=== PATIENT | female | born 1955 | race Asian ===

== ENCOUNTER 2024-03-02 15:26 | Inpatient (IN) | payer MEDICARE ==
[~2024-03-02] VITALS: Ht 162.6 cm; Wt 55.5 kg
[2024-03-02] MEDS ORDERED: 0.9% SODIUM CHLORIDE 10 ML SYRINGE IVP PRN (15:45)
[2024-03-02] MEDS: SODIUM CHLORIDE 0.9% 1,500 ML IV ONE (15:52)
[2024-03-02] MEDS: CefTRIAXone 1 GM/DEXTROSE 50 ML IV ONE (15:59)
[2024-03-02 16:06] LABS: BASOPHILS % (AUTO) 0.5 % (0.0-2.0); EOSINOPHILS % (AUTO) 0.5 % (1.0-6.0); HEMOGLOBIN 7.5 g/dL (12.0-16.0); LYMPHOCYTES # (AUTO) 1.3 K/uL (1.0-4.8); LYMPHOCYTES % (AUTO) 7.2 % (22.0-44.0); MEAN CORPUSCULAR HEMOGLOBIN 32.4 pg (26.0-34.0); MEAN CORPUSCULAR HGB CONC 31.2 G/dL (31.0-37.0); MEAN CORPUSCULAR VOLUME 104 fL (80-100); MONOCYTES # (AUTO) 0.9 K/uL (0.1-1.0); NEUTROPHILS # (AUTO) 15.3 K/uL (1.8-7.7); PLATELET COUNT (AUTO) 402 K/uL (150-450); RED BLOOD CELL COUNT(AUTO) 2.31 MIL/uL (4.00-5.20); RED CELL DISTRIBUTION WIDTH 16.7 % (11.5-14.5); WHITE BLOOD COUNT (AUTO) 17.6 K/uL (4.5-11.0)
[2024-03-02 16:07] LABS: NEUTROPHILS % (AUTO) 86.8 % (40.0-70.0)
[2024-03-02 16:07] LABS: APPEARANCE,URINE TURBID (CLEAR); BILIRUBIN,URINE NEGATIVE (NEGATIVE); COLOR,URINE DARK ORANGE (YELLOW); GLUCOSE, URINE (UA) NEGATIVE (NEGATIVE); KETONES,URINE NEGATIVE (NEGATIVE); LEUKOCYTE ESTERASE ,URINE LARGE (NEGATIVE); NITRATE,URINE NEGATIVE (NEGATIVE); OCCULT BLOOD,URINE MODERATE (NEGATIVE); PROTEIN,URINE 300-600,SEE CONFIRM mg/dL (NEGATIVE); SPECIFIC GRAVITIY, URINE 1.024 (1.003-1.030); UROBILINOGEN,URINE <=1.0 mg/dL (<=1.0)
[2024-03-02 16:12] LABS: ANION GAP 7 mmol/L (8-16); CALCIUM, TOTAL 7.9 mg/dL (8.8-10.5); CARBON DIOXIDE 31 mmol/L (22-29); CHLORIDE 93 mmol/L (98-107); CREATININE 5.91 mg/dL (0.60-1.30); GLOMERULAR FILTR. RATE CALC 7 mL/min (>60); GLUCOSE,RANDOM 267 mg/dL (70-110); SODIUM SERUM 131 mmol/L (136-145); UREA NITROGEN, BLOOD 30 mg/dL (7-18)
[2024-03-02 16:14] LABS: INR 1.2 (0.9-1.1); PROTHROMBIN TIME 12.2 SEC (9.4-11.6)
[2024-03-02 16:16] LABS: SULFOSALICYLIC ACID,URINE 4+ (Negative)
[2024-03-02 16:17] LABS: BACTERIA,URINE Many /HPF (None Seen); SQUAMOUS EPITHELIAL CELL,UR Few /LPF (None Seen); WBC,URINE >100 /HPF (0-5)
[2024-03-02 16:20] LABS: LACTIC ACID 1.8 mmol/L (0.4-2.0); TROPONIN I-HIGH SENSITIVITY 29 ng/L (<51)
[2024-03-02 16:21] LABS: B-TYPE NATRIURETIC PEPTIDE 893 pg/mL (0-100); RBC MORPHOLOGY COMMENT NORMAL RBC MORPH
[2024-03-02 16:26] LABS: ALBUMIN 1.6 g/dL (3.4-5.0); ALKALINE PHOSPHATASE 148 U/L (46-116); ASPARTATE AMINOTRANSFERASE 24 U/L (15-37); BILIRUBIN,TOTAL 0.3 mg/dL (0.1-1.0); TOTAL PROTEIN, SERUM 6.1 g/dL (6.4-8.2)
[2024-03-02 16:27] LABS: ALANINE AMINOTRANSFERASE 2 U/L (12-78)
[2024-03-02] MEDS ORDERED: MORPHINE SULFATE 2 MG/ML SYRINGE IVP PRN (19:45)
[2024-03-02] MEDS ORDERED: MAGNESIUM HYDROXIDE SUSPENSION 30 ML UDCUP PO PRN (19:45)
[2024-03-02] MEDS ORDERED: HYDROCODONE/ACETAMINOPHEN 5-325 MG TABLET PO PRN (19:45)
[2024-03-02] MEDS ORDERED: ACETAMINOPHEN 325 MG TABLET PO PRN (19:45)
[2024-03-02] MEDS ORDERED: ONDANSETRON HCL 4 MG/2 ML VIAL IVP PRN (19:45)
[2024-03-02] MEDS ORDERED: BISACODYL 10 MG RECTAL RECTAL SUPPOSITORY PR PRN (19:45)
[2024-03-02] MEDS: *CLINICAL-LEVOFLOXACIN IVPB DOSING CLINICAL ONE (20:02)
[2024-03-02] MEDS: SODIUM CHLORIDE 0.9% 1,000 ML IV ONE (20:07)
[2024-03-02] MEDS: DOCUSATE SODIUM 100 MG CAPSULE PO SCH (20:11)
[2024-03-02 21:40] VITALS: BP 134/71; PULSE 93; RESP 19; TEMP 98.4; O2SAT 94
[2024-03-02 23:57] VITALS: BP 115/70; PULSE 91; RESP 19; TEMP 98.1; O2SAT 96
[2024-03-03] MEDS: HEPARIN SODIUM,PORCINE 5,000 UNITS/ML VIAL SQ SCH (00:21)
[2024-03-03 04:00] VITALS: BP 117/58; PULSE 87; RESP 18; TEMP 98.3; O2SAT 97
[2024-03-03 06:01] LABS: GLUCOMETER DEV NAME(LOC) 5S.1C; GLUCOSE,POINT OF CARE 157 MG/DL (70-110)
[2024-03-03 06:46] LABS: HEMATOCRIT 22.3 % (36-46); HEMOGLOBIN 7.1 g/dL (12.0-16.0); MEAN CORPUSCULAR HGB CONC 31.8 G/dL (31.0-37.0); MEAN CORPUSCULAR VOLUME 104 fL (80-100); PLATELET COUNT (AUTO) 398 K/uL (150-450); RED BLOOD CELL COUNT(AUTO) 2.15 MIL/uL (4.00-5.20); RED CELL DISTRIBUTION WIDTH 16.3 % (11.5-14.5); WHITE BLOOD COUNT (AUTO) 15.8 K/uL (4.5-11.0)
[2024-03-03] MEDS ORDERED: INSU100I26 SQ (06:53)
[2024-03-03] MEDS ORDERED: QUET25TA PO (06:53)
[2024-03-03] MEDS ORDERED: GABA-1181 PO (06:53)
[2024-03-03] MEDS ORDERED: ASPI-1450 PO (06:53)
[2024-03-03] MEDS ORDERED: FERR325T27 PO (06:53)
[2024-03-03] MEDS ORDERED: LEVO75 PO (06:53)
[2024-03-03] MEDS ORDERED: ALLO-97 PO (06:53)
[2024-03-03] MEDS ORDERED: INSNOV SQ (06:53)
[2024-03-03] MEDS ORDERED: DULA0.75 SQ (06:53)
[2024-03-03] MEDS ORDERED: SERT-158 PO (06:53)
[2024-03-03] MEDS ORDERED: SODI650T33 PO (06:53)
[2024-03-03] MEDS ORDERED: ATOR40TA28 PO (06:53)
[2024-03-03] MEDS ORDERED: ERGO500054 PO (06:53)
[2024-03-03] MEDS ORDERED: OXYC-490 PO (06:53)
[2024-03-03] MEDS ORDERED: SEVE800T38 PO (06:53)
[2024-03-03] MEDS ORDERED: CEFU250T87 PO (06:53)
[2024-03-03 07:02] LABS: CALCIUM, TOTAL 7.9 mg/dL (8.8-10.5); CREATININE 6.34 mg/dL (0.60-1.30); POTASSIUM 4.2 mmol/L (3.5-5.1)
[2024-03-03 07:15] LABS: TROPONIN I-HIGH SENSITIVITY 25 ng/L (<51)
[2024-03-03 07:39] LABS: BAND NEUTROPHILS % (MANUAL) 2 % (0-5); LYMPHOCYTES % (MANUAL) 8 % (22-44); MONOCYTES % (MANUAL) 5 % (2-9); RBC MORPHOLOGY COMMENT ABNORMAL RBC MORPH; SEGMENTED NEUTROPHILS % 85 % (40-70); TOTAL CELLS COUNTED 100
[2024-03-03 08:00] VITALS: BP 129/39; PULSE 86; RESP 15; TEMP 98.4; O2SAT 96
[2024-03-03] MEDS: PANTOPRAZOLE SODIUM 40 MG DR TABLET PO SCH (08:41)
[2024-03-03] MEDS ORDERED: DEXTROSE 50%-WATER 25 GM/50 ML SYRINGE IVP PRN (11:15)
[2024-03-03 11:31] LABS: GLUCOMETER DEV NAME(LOC) 5S.1C; GLUCOSE,POINT OF CARE 188 MG/DL (70-110)
[2024-03-03 12:00] VITALS: BP 125/57; PULSE 90; RESP 17; TEMP 98.6; O2SAT 95
[2024-03-03] MEDS: SEVELAMER CARBONATE 800 MG TABLET PO SCH (12:23)
[2024-03-03] MEDS: INSULIN LISPRO 100 UNITS/ML SQ PRN (12:34)
[2024-03-03] MEDS: LEVOFLOXACIN 500 MG/D5% WATER 100 ML IV SCH (14:05)
[2024-03-03 16:00] VITALS: BP 122/70; PULSE 103; RESP 14; TEMP 98.5; O2SAT 95
[2024-03-03 17:36] LABS: GLUCOMETER DEV NAME(LOC) 5S.1C; GLUCOSE,POINT OF CARE 149 MG/DL (70-110)
[2024-03-03 18:11] LABS: GLUCOMETER DEV NAME(LOC) 5N.2C; GLUCOSE,POINT OF CARE 246 MG/DL (70-110)
[2024-03-03] MEDS: HYDROCORTISONE SOD SUCC 100 MG/2 ML VIAL IVP SCH (18:31)
[2024-03-03 20:11] VITALS: BP 129/74; PULSE 102; RESP 17; TEMP 98; O2SAT 99
[2024-03-03] MEDS: ATORVASTATIN CALCIUM 40 MG TABLET PO SCH (21:00)
[2024-03-03 23:29] VITALS: BP 115/62; PULSE 86; RESP 19; TEMP 98.1; O2SAT 97
[2024-03-04] VITALS (12 sets, daily range): BP systolic 99–139; BP diastolic 45–82; PULSE 66–98; RESP 14–18; TEMP 97.2–98.5; O2SAT 95–100
[2024-03-04 00:11] LABS: GLUCOMETER DEV NAME(LOC) 5N.2C; GLUCOSE,POINT OF CARE 194 MG/DL (70-110)
[2024-03-04] MEDS: LEVOTHYROXINE SODIUM 75 MCG TABLET PO SCH (05:40)
[2024-03-04 07:30] LABS: BASOPHILS % (AUTO) 0.4 % (0.0-2.0); EOSINOPHILS % (AUTO) 0 % (1.0-6.0); HEMOGLOBIN 7.7 g/dL (12.0-16.0); LYMPHOCYTES # (AUTO) 0.6 K/uL (1.0-4.8); LYMPHOCYTES % (AUTO) 3.7 % (22.0-44.0); MEAN CORPUSCULAR HGB CONC 31.9 G/dL (31.0-37.0); MEAN CORPUSCULAR VOLUME 103 fL (80-100); MONOCYTES # (AUTO) 0.1 K/uL (0.1-1.0); MONOCYTES % (AUTO) 0.9 % (2.0-9.0); NEUTROPHILS # (AUTO) 14.9 K/uL (1.8-7.7); PLATELET COUNT (AUTO) 431 K/uL (150-450); RED BLOOD CELL COUNT(AUTO) 2.32 MIL/uL (4.00-5.20); WHITE BLOOD COUNT (AUTO) 15.7 K/uL (4.5-11.0)
[2024-03-04 07:38] LABS: RBC MORPHOLOGY COMMENT ABNORMAL RBC MORPH
[2024-03-04 07:47] LABS: CALCIUM, TOTAL 8.3 mg/dL (8.8-10.5); CREATININE 7.34 mg/dL (0.60-1.30)
[2024-03-04 07:50] LABS: GLUCOMETER DEV NAME(LOC) 5N.2C; GLUCOSE,POINT OF CARE 173 MG/DL (70-110)
[2024-03-04] MEDS: ASPIRIN 81 MG CHEWABLE TABLET PO SCH (08:29)
[2024-03-04] MEDS: SODIUM BICARBONATE 650 MG TABLET PO SCH (08:30)
[2024-03-04 12:36] LABS: GLUCOMETER DEV NAME(LOC) 5S.1C; GLUCOSE,POINT OF CARE 253 MG/DL (70-110)
[2024-03-04] MEDS: FOLIC ACID/VIT B COMPLEX AND C TABLET PO SCH (13:32)
[2024-03-04] MEDS: HEPARIN SODIUM,PORCINE 1,000 UNITS/ML VIAL IVCATH ONE ×2 (19:33)
[2024-03-05 00:16] LABS: GLUCOMETER DEV NAME(LOC) 5N.2C; GLUCOSE,POINT OF CARE 217 MG/DL (70-110)
[2024-03-05 04:00] VITALS: BP 125/49; PULSE 84; RESP 18; TEMP 98.2; O2SAT 99
[2024-03-05 07:29] LABS: BASOPHILS % (AUTO) 1.2 % (0.0-2.0); EOSINOPHILS % (AUTO) 0 % (1.0-6.0); HEMATOCRIT 25.4 % (36-46); HEMOGLOBIN 8.2 g/dL (12.0-16.0); LYMPHOCYTES # (AUTO) 0.8 K/uL (1.0-4.8); LYMPHOCYTES % (AUTO) 5.6 % (22.0-44.0); MEAN CORPUSCULAR HEMOGLOBIN 33.1 pg (26.0-34.0); MEAN CORPUSCULAR HGB CONC 32.4 G/dL (31.0-37.0); MEAN CORPUSCULAR VOLUME 102 fL (80-100); MONOCYTES # (AUTO) 0.4 K/uL (0.1-1.0); MONOCYTES % (AUTO) 3.1 % (2.0-9.0); NEUTROPHILS # (AUTO) 12.7 K/uL (1.8-7.7); PLATELET COUNT (AUTO) 487 K/uL (150-450); RED BLOOD CELL COUNT(AUTO) 2.48 MIL/uL (4.00-5.20); RED CELL DISTRIBUTION WIDTH 16.6 % (11.5-14.5); WHITE BLOOD COUNT (AUTO) 14.1 K/uL (4.5-11.0)
[2024-03-05 07:34] LABS: NEUTROPHILS % (AUTO) 90.1 % (40.0-70.0)
[2024-03-05 07:50] LABS: CALCIUM, TOTAL 8.6 mg/dL (8.8-10.5); CREATININE 4.06 mg/dL (0.60-1.30); POTASSIUM 4.2 mmol/L (3.5-5.1)
[2024-03-05 08:26] VITALS: BP 119/58; PULSE 86; RESP 19; TEMP 98; O2SAT 100
[2024-03-05 09:01] LABS: GLUCOMETER DEV NAME(LOC) 5S.1C; GLUCOSE,POINT OF CARE 200 MG/DL (70-110)
[2024-03-05 09:01] LABS: GLUCOMETER DEV NAME(LOC) 5S.1C; GLUCOSE,POINT OF CARE 214 MG/DL (70-110)
[2024-03-05 11:27] VITALS: BP 121/55; PULSE 82; RESP 20; TEMP 98.1; O2SAT 99
[2024-03-05] MEDS ORDERED: HEPARIN SODIUM,PORCINE 1,000 UNITS/ML VIAL IVP ONE (12:22)
[2024-03-05 14:59] VITALS: BP 126/62; PULSE 88; RESP 18; TEMP 98; O2SAT 100
[2024-03-05] MEDS: EPOETIN ALFA 10,000 UNITS/ML 2 ML VIAL SQ ONE (15:41)
[2024-03-05] MEDS: HYDROCORTISONE SOD SUCC 100 MG/2 ML VIAL IVP SCH (16:29)
[2024-03-05 19:44] VITALS: BP 111/58; PULSE 58; RESP 18; TEMP 98.2; O2SAT 99
[2024-03-05 20:01] LABS: GLUCOMETER DEV NAME(LOC) 5S.1C; GLUCOSE,POINT OF CARE 199 MG/DL (70-110)
[2024-03-05 20:01] LABS: GLUCOMETER DEV NAME(LOC) 5N.2C; GLUCOSE,POINT OF CARE 155 MG/DL (70-110)
[2024-03-05 23:10] VITALS: BP 113/62; PULSE 80; RESP 19; TEMP 97.7; O2SAT 99
[2024-03-05] MEDS: ZOLPIDEM TARTRATE 5 MG TABLET PO PRN (23:15)
[2024-03-06] VITALS (11 sets, daily range): BP systolic 102–155; BP diastolic 51–95; PULSE 70–90; RESP 16–20; TEMP 97–98; O2SAT 92–96
[2024-03-06 07:24] LABS: BASOPHILS % (AUTO) 0.6 % (0.0-2.0); EOSINOPHILS % (AUTO) 0 % (1.0-6.0); HEMATOCRIT 26.7 % (36-46); HEMOGLOBIN 8.7 g/dL (12.0-16.0); LYMPHOCYTES # (AUTO) 0.8 K/uL (1.0-4.8); LYMPHOCYTES % (AUTO) 8.3 % (22.0-44.0); MEAN CORPUSCULAR HEMOGLOBIN 33.6 pg (26.0-34.0); MEAN CORPUSCULAR HGB CONC 32.4 G/dL (31.0-37.0); MEAN CORPUSCULAR VOLUME 104 fL (80-100); MONOCYTES # (AUTO) 0.5 K/uL (0.1-1.0); MONOCYTES % (AUTO) 4.6 % (2.0-9.0); NEUTROPHILS # (AUTO) 8.8 K/uL (1.8-7.7); PLATELET COUNT (AUTO) 488 K/uL (150-450); RED BLOOD CELL COUNT(AUTO) 2.58 MIL/uL (4.00-5.20); RED CELL DISTRIBUTION WIDTH 17.4 % (11.5-14.5); WHITE BLOOD COUNT (AUTO) 10.1 K/uL (4.5-11.0)
[2024-03-06 07:27] LABS: NEUTROPHILS % (AUTO) 86.5 % (40.0-70.0)
[2024-03-06 07:38] LABS: CALCIUM, TOTAL 8.6 mg/dL (8.8-10.5); CREATININE 5.45 mg/dL (0.60-1.30); POTASSIUM 4.7 mmol/L (3.5-5.1)
[2024-03-06 07:47] LABS: RBC MORPHOLOGY COMMENT ABNORMAL RBC MORPH
[2024-03-06 09:21] LABS: GLUCOMETER DEV NAME(LOC) 5N.2C; GLUCOSE,POINT OF CARE 347 MG/DL (70-110)
[2024-03-06 09:21] LABS: GLUCOMETER DEV NAME(LOC) 5N.2C; GLUCOSE,POINT OF CARE 276 MG/DL (70-110)
[2024-03-06 13:06] LABS: GLUCOMETER DEV NAME(LOC) 5N.2C; GLUCOSE,POINT OF CARE 297 MG/DL (70-110)
[2024-03-06] MEDS: HEPARIN SODIUM,PORCINE 1,000 UNITS/ML VIAL IVCATH ONE ×2 (15:51→15:52)
[2024-03-06] MEDS ORDERED: HEPARIN SODIUM,PORCINE 1,000 UNITS/ML VIAL IVP ONE (16:59)
[2024-03-08] MEDS ORDERED: EPOETIN ALFA 10,000 UNITS/ML 2 ML VIAL SQ SCH (09:00)
== END 2024-03-06 17:00 | disposition short-term general hospital (02) | DRG 871 ==
LOC: EMS 15:26 → EDH 19:56 → 5N 21:46
PROVIDERS: ADMIT Internal Medicine; ATTEND Internal Medicine
PROC: 5A1D70Z Performance of Urinary Filtration, Intermittent, Less than 6 Hours Per Day (ICD-10-PCS; principal; 2024-03-04)
PROC: 5A1D70Z Performance of Urinary Filtration, Intermittent, Less than 6 Hours Per Day (ICD-10-PCS; 2024-03-06)
DX: A41.9 Sepsis, unspecified organism (principal); J18.9 Pneumonia, unspecified organism; J96.01 Acute respiratory failure with hypoxia; N18.6 End stage renal disease; N39.0 Urinary tract infection, site not specified; E87.1 Hypo-osmolality and hyponatremia; E44.0 Moderate protein-calorie malnutrition; I50.30 Unspecified diastolic (congestive) heart failure; T86.12 Kidney transplant failure; E11.22 Type 2 diabetes mellitus with diabetic chronic kidney disease; E11.65 Type 2 diabetes mellitus with hyperglycemia; E03.9 Hypothyroidism, unspecified; D63.8 Anemia in other chronic diseases classified elsewhere; E78.5 Hyperlipidemia, unspecified; M32.9 Systemic lupus erythematosus, unspecified; E78.00 Pure hypercholesterolemia, unspecified; Y83.8 Other surgical procedures as the cause of abnormal reaction of the patient, or of later complication, without mention of misadventure at the time of the procedure; Y92.89 Other specified places as the place of occurrence of the external cause; Z99.2 Dependence on renal dialysis; Z93.3 Colostomy status
CPT/HCPCS: 51702; 71045; 80048; 80053; 81001; 81002; 82962; 83036; 83605; 83880; 84145; 84484; 85025; 85610; 87040; 87081; 87086; 87340; 90935; 93005; 93306; 99285; J0696; J0885; J1644; J1720; J1956; J7030; 36415-L1; 36415-TC